=== PATIENT | female | born 1955 | race African-American/Black ===

== ENCOUNTER 2022-09-04 21:07 | Emergency (ER) | payer BC, OTHER ==
[~2022-09-04] VITALS: Ht 170.2 cm; Wt 82.0 kg
[2022-09-04 21:10] VITALS: O2SAT 95
[2022-09-04] MEDS ORDERED: LIDOCAINE 5% PATCH TOP ONE (21:30)
[2022-09-04] MEDS ORDERED: SODIUM CHLORIDE 0.9% 1,000 ML IV ONE (21:30)
[2022-09-04] MEDS ORDERED: ACETAMINOPHEN 325MG TABLET PO ONE (21:30)
[2022-09-04 21:46] LABS: BASOPHILS % 0.1 % (0.0-2.0); EOSINOPHILS % 0.9 % (0.0-5.0); HEMATOCRIT. 37.7 % (36.0-48.0); HEMOGLOBIN. 12.1 g/dL (12.0-16.0); LYMPHOCYTES % 10.3 % (20.0-50.0); MEAN CORPUSCULAR HEMOGLOBIN 25.8 pg (28.0-32.0); MEAN CORPUSCULAR VOLUME 80.8 fL (81.0-99.0); MEAN PLATELET VOLUME 8.6 fl (7.4-10.4); MONOCYTES % 6.3 % (2.0-8.0); NEUTROPHILS % 82.4 % (40.0-76.0); PLATELET 100 x1000/uL (130-400); RED BLOOD CELL COUNT 4.67 mill/uL (4.2-5.4); RED CELL DISTRIBUTION WIDTH 16.8 % (11.6-14.6)
[2022-09-04 21:55] LABS: CHLORIDE 102 mEq/L (98-107)
[2022-09-04 22:03] LABS: ETHANOL BLOOD < 10 mg/dL (-10)
[2022-09-04 22:05] LABS: CREATINE KINASE 86 IU/L (26-192)
[2022-09-04] MEDS ORDERED: ASPIRIN 81MG TABLET PO ONE (22:30)
[2022-09-04 23:02] LABS: AMYLASE 120 IU/L (25-115)
[2022-09-05] MEDS ORDERED: KCL 20MEQ/100ML PREMIX 100 ML IV NR
[2022-09-05 01:37] LABS: CLARITY URINE CLOUDY (CLEAR); COLOR URINE YELLOW (YELLOW); KETONES URINE NEGATIVE (NEGATIVE); LEUKOCYTE ESTERASE URINE 2+ (NEGATIVE); NITRITE URINE POSITIVE (NEGATIVE); OCCULT BLOOD URINE 1+ (NEGATIVE); PROTEIN URINE 2+ (NEGATIVE); SPECIFIC GRAVITY URINE 1.015 (1.005-1.030)
[2022-09-05 01:49] LABS: *AMPHETAMINES SCREEN URINE NEGATIVE (NEGATIVE); *BARBITURATES SCREEN URINE NEGATIVE (NEGATIVE); *BENZODIAZEPINES SCREEN URINE NEGATIVE (NEGATIVE); *COCAINE SCREEN URINE NEGATIVE (NEGATIVE); CANNABINOID URINE SCREEN NEGATIVE (NEGATIVE); METHADONE URINE SCREEN NEGATIVE (NEGATIVE); OPIATES URINE SCREEN NEGATIVE (NEGATIVE); PHENCYCLIDINE URINE SCREEN NEGATIVE (NEGATIVE)
[2022-09-05] MEDS ORDERED: CEFTRIAXONE 1GM PREMIX 50 ML IV NR (02:00)
[2022-09-05] MEDS ORDERED: SODIUM CHLORIDE 0.9% 1,000 ML IV ONE (03:15)
[2022-09-05 09:52] VITALS: BP 113/89; PULSE 99; RESP 23; TEMP 98
== END 2022-09-05 10:50 | disposition short-term general hospital (02) ==
LOC: ER 21:07
DX: A41.9 Sepsis, unspecified organism (principal); N39.0 Urinary tract infection, site not specified; R53.1 Weakness; R10.9 Unspecified abdominal pain; E11.9 Type 2 diabetes mellitus without complications; I10 Essential (primary) hypertension; Z20.822 Contact with and (suspected) exposure to COVID-19
CPT/HCPCS: 80053; 80320; 82150; 82550; 83880; 83605; 83690; 85025; 84484 ×2; 36415 ×2; 71045; 93005; 96361; 99285; 87426; 80305; 81003; 87086; 87186; 87077; 74176; 96365; J3480; J7030 ×2; C9803; J0696; G0480